=== PATIENT | male | born 2005 | race Caucasian/White ===

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

== ENCOUNTER 2025-03-17 11:24 | Emergency (ER) | payer OTHER ==
[~2025-03-17] VITALS: Ht 162.6 cm; Wt 72.0 kg
[2025-03-17 11:29] VITALS: O2SAT 98
[2025-03-17 12:58] LABS: BASOPHILS % 0.6 % (0.0-2.0); EOSINOPHILS % 1.3 % (0.0-5.0); HEMATOCRIT. 42.9 % (42.0-52.0); HEMOGLOBIN. 14.6 g/dL (14.0-18.0); LYMPHOCYTES % 34.2 % (20.0-50.0); MEAN CORPUSCULAR HEMOGLOBIN 29.6 pg (28.0-32.0); MEAN CORPUSCULAR HGB CONC 34.1 g/dL (31.0-37.0); MEAN PLATELET VOLUME 8.4 fl (7.4-10.4); MONOCYTES % 7.6 % (2.0-8.0); NEUTROPHILS % 56.3 % (40.0-76.0); PLATELET 214 x1000/uL (130-400); RED BLOOD CELL COUNT 4.93 mill/uL (4.7-6.1); RED CELL DISTRIBUTION WIDTH 11.8 % (11.6-14.6); WHITE BLOOD COUNT 5.9 x1000/uL (4.5-11.0)
[2025-03-17 13:16] LABS: CARBON DIOXIDE 29 mEq/L (21-32); CHLORIDE 108 mEq/L (98-107); POTASSIUM 4.3 mEq/L (3.5-5.1); SODIUM 143 mEq/L (136-145)
[2025-03-17 13:17] LABS: CALCIUM 10.1 mg/dL (8.7-10.4)
[2025-03-17 13:22] LABS: CREATININE 1.1 mg/dL (0.6-1.3); GLUCOSE 107 mg/dL (70-105); UREA NITROGEN BLOOD 12 mg/dL (9-23)
[2025-03-17] MEDS ORDERED: AMOX1TAB16 MT (14:59)
[2025-03-17] MEDS ORDERED: SULF1TAB48 MT (14:59)
[2025-03-17 15:20] VITALS: BP 125/71; PULSE 70; RESP 16; TEMP 37; O2SAT 98
[2025-03-17] MEDS ORDERED: IOHEXOL-300 100 ML BOTTLE ONE (15:25)
== END 2025-03-17 15:24 | disposition home or self-care (01) ==
LOC: ER 11:24
DX: L03.213 Periorbital cellulitis (principal); Z88.6 Allergy status to analgesic agent
CPT/HCPCS: 99285; 70481; 80048; 85025; 36415; Q9967